=== PATIENT | female | born 1970 | race Caucasian/White ===

== ENCOUNTER 2017-08-10 07:56 | Day surgery (SDC) | payer OTHER ==
[2017-08-09 14:28] VITALS: BMI 26.5
[2017-08-10] MEDS ORDERED: Oxymetazoline HCl 0.05% ( 15 ML ) ONE ×2 (09:41→11:00)
[2017-08-10] MEDS ORDERED: Midazolam HCl 2 mg/2 ml Vial ONE ×2 (10:14→10:47)
[2017-08-10] MEDS ORDERED: Fentanyl 100 MCG/2 ML VIAL ONE (10:47)
[2017-08-10] MEDS ORDERED: Bacitracin Zinc Ointment 30 gm TUBE ONE (11:00)
[2017-08-10] MEDS ORDERED: Lidocaine 1% w/Epinephrine 1:200K 30 ML VIAL ONE (11:00)
[2017-08-10] MEDS ORDERED: Propofol 200 MG/20 ML VIAL ONE (12:41)
[2017-08-10] MEDS ORDERED: ePHEDrine/0.9% NaCl/PF SYRINGE 50 mg/10 ml ONE (12:41)
[2017-08-10] MEDS ORDERED: Lidocaine 1% PF 5 ML VIAL ONE (12:41)
[2017-08-10] MEDS ORDERED: Hydrocortisone Sod Succ/PF 100 mg/2 ml Vial ONE (12:41)
[2017-08-10] MEDS ORDERED: Ondansetron HCl/PF 4 MG/2 ML Vial ONE (12:41)
[2017-08-10] MEDS ORDERED: Succinylcholine Chloride 20 MG/ML 10 ml SYRINGE FS ONE (12:41)
[2017-08-10] MEDS ORDERED: Morphine 4 MG/ML VIAL ONE ×2 (12:46→13:08)
[2017-08-10] MEDS ORDERED: Hydrocodone-Acetamin 15 ML UDCUP ONE (13:08)
--- NOTE | 2017-08-11 11:33 | OP ---
DATE OF PROCEDURE: 08/10/2017 PREOPERATIVE DIAGNOSES: 1. Chronic rhinosinusitis. 2. Nasal septal deviation. 3. Inferior turbinate hypertrophy. 4. Right middle turbinate jeannie bullosa. 5. Nasal obstruction. POSTOPERATIVE DIAGNOSES: 1. Chronic rhinosinusitis. 2. Nasal septal deviation. 3. Inferior turbinate hypertrophy. 4. Right middle turbinate jeannie bullosa. 5. Nasal obstruction. PROCEDURES: 1. Bilateral endoscopic sinus surgery, total ethmoidectomies. 2. Bilateral endoscopic sinus surgery, maxillary antrostomies. 3. Bilateral endoscopic sinus surgery, sphenoidotomies. 4. Bilateral endoscopic sinus surgery, frontal sinusotomy. 5. Nasal septoplasty. 6. Bilateral inferior turbinate submucosal resection. 7. Right middle turbinate endoscopic resection of jeannie bullosa. SURGEON: Ricardo Carroll M.D. ESTIMATED BLOOD LOSS: 50 mL COMPLICATIONS: None. ANESTHESIA: GETA. PROCEDURE IN DETAIL: Patient was taken to the operating room and placed supine on the table. General endotracheal anesthesia was obtained by the Anesthesia staff. Tube was secured in the left lower lip. Patient was then placed in the beach chair position, and Afrin pledgets were placed in the nasal cavity. Injections of 1% lidocaine with 1:100,000 epinephrine were made into the nasal septum as well as the inferior turbinates. Patient was then prepped and draped in standard surgical fashion for nasal surgery. Following this, the Afrin pledgets were removed. A Laurent incision was made on the left nasal septum. Submucoperichondrial dissection was performed. The deviated portions of the septum included portions of the cartilage and the bony septum. These isolated areas were removed using three cutting rongeurs. There was noted to be a large dorsal and caudal strut, left intact for support of the nose. The mucoperichondrial flaps were then reapproximated using a 4-0 gut stitch. Any straight pieces of cartilage were crushed prior to this and placed between the mucoperichondrial flaps. Following this, the inferior turbinates were then punctured with a submucosal coblation wand, and submucosal coblations were performed of multiple areas of the inferior portion of the anterior inferior turbinate. Please note that the submucosal microdebrider was used to submucosally resect the anterior and inferi or portions of the inferior turbinates. Following this, the 0 degree scope was advanced to middle me atus. On the right side, a sickle knife was used to vertically incise the large right middle turbina te jeannie bullosa. The lateral wall of this jeannie bullosa was then resected using a straight Blakes jesus forceps and a microdebrider. Following this, the uncinate process was identified bilaterally and was fractured using the ball-ended probe anteriorly. Following this, the microdebrider and the upbi ting Blakesley forceps were used to remove the uncinate bilaterally. Following this, the ball-ended probe was used to gently identify the natural maxillary sinus ostia, and after this, a straight Tulio sley forceps and straight microdebrider were used to open the maxillary sinus ostia bilaterally. Fol lowing this, the ethmoidal bulla was identified and was punctured on its medial and inferior aspect a nd was removed. Following this, the grand lamella was identified and was punctured into the posterio r ethmoidal cells. Working from posterior to anterior, the ethmoidal cells were opened in a mucosal- sparing technique. Following this, the sphenoid sinuses were approach through the ethmoidal cells an d the sphenoid sinus ostia were then widened medially and inferiorly using the microdebrider. Follow ing this, the 45 degree scope and the upbiting microdebrider were then used to further open the front al recess cells and identify the frontal sinus ostia. The frontal sinus ostia were then widened usin g the curved microdebrider and upbiting Blakesley forceps. Following this, the nasal cavity was irri gated. MeroPacks were placed within the middle meatus. [place] splints were placed and secured. The patient tolerated the procedure well.
== END 2017-08-10 13:50 | disposition home or self-care (01) ==
LOC: SDC 07:56
PROVIDERS: ATTEND Otolaryngology Plastic Surgery within the Head & Neck
PROC: 099T8ZZ Drainage of Left Frontal Sinus, Via Natural or Artificial Opening Endoscopic (ICD-10-PCS; principal; 2017-08-10)
PROC: 09BR8ZZ Excision of Left Maxillary Sinus, Via Natural or Artificial Opening Endoscopic (ICD-10-PCS; principal; 2017-08-10)
PROC: 099Q8ZZ Drainage of Right Maxillary Sinus, Via Natural or Artificial Opening Endoscopic (ICD-10-PCS; principal; 2017-08-10)
PROC: 09BQ8ZZ Excision of Right Maxillary Sinus, Via Natural or Artificial Opening Endoscopic (ICD-10-PCS; principal; 2017-08-10)
PROC: 09BM0ZZ Excision of Nasal Septum, Open Approach (ICD-10-PCS; principal; 2017-08-10)
PROC: 09BW8ZZ Excision of Right Sphenoid Sinus, Via Natural or Artificial Opening Endoscopic (ICD-10-PCS; principal; 2017-08-10)
PROC: 09BS8ZZ Excision of Right Frontal Sinus, Via Natural or Artificial Opening Endoscopic (ICD-10-PCS; principal; 2017-08-10)
PROC: 099S8ZZ Drainage of Right Frontal Sinus, Via Natural or Artificial Opening Endoscopic (ICD-10-PCS; principal; 2017-08-10)
PROC: 099X8ZZ Drainage of Left Sphenoid Sinus, Via Natural or Artificial Opening Endoscopic (ICD-10-PCS; principal; 2017-08-10)
PROC: 09BT8ZZ Excision of Left Frontal Sinus, Via Natural or Artificial Opening Endoscopic (ICD-10-PCS; principal; 2017-08-10)
PROC: 09BL0ZZ Excision of Nasal Turbinate, Open Approach (ICD-10-PCS; principal; 2017-08-10)
PROC: 099W8ZZ Drainage of Right Sphenoid Sinus, Via Natural or Artificial Opening Endoscopic (ICD-10-PCS; principal; 2017-08-10)
PROC: 09BX8ZZ Excision of Left Sphenoid Sinus, Via Natural or Artificial Opening Endoscopic (ICD-10-PCS; principal; 2017-08-10)
PROC: 099R8ZZ Drainage of Left Maxillary Sinus, Via Natural or Artificial Opening Endoscopic (ICD-10-PCS; principal; 2017-08-10)
DX: J32.9 Chronic sinusitis, unspecified (principal); J34.2 Deviated nasal septum; J34.3 Hypertrophy of nasal turbinates; J34.89 Other specified disorders of nose and nasal sinuses; M06.9 Rheumatoid arthritis, unspecified; J35.01 Chronic tonsillitis; J30.9 Allergic rhinitis, unspecified; I10 Essential (primary) hypertension; Z91.018 Allergy to other foods; Z91.013 Allergy to seafood; Z91.010 Allergy to peanuts; Z79.818 Long term (current) use of other agents affecting estrogen receptors and estrogen levels; Z79.899 Other long term (current) drug therapy; Z98.890 Other specified postprocedural states
CPT/HCPCS: 85014; 96374; J1720; J2001; J2250; J2270; J2405; J2704; J3010